=== PATIENT | female | born 1970 | race Hispanic/Latino ===

== ENCOUNTER 2017-10-28 09:44 | Day surgery (SDC) | payer BC ==
[2017-10-25 13:25] LABS: Urine Appearance CLEAR; Urine Bilirubin NEGATIVE (NEG); Urine Blood NEGATIVE (NEG); Urine Color YELLOW; Urine Glucose NEGATIVE (NEG); Urine Protein NEGATIVE (NEG); Urine Specific Gravity 1.015 (1.005-1.030); Urine Urobilinogen 0.2 mg/dL (0.2-1.0)
[2017-10-25 13:27] LABS: Urine Microscopic Reflex NO UMIC
[2017-10-25 13:29] LABS: Absolute Lymphocytes (CBC) 2.2 K/uL (0.7-4.9); Absolute Monocytes 0.6 K/uL (0.1-1.3); Absolute Neutrophil 6.4 K/uL (1.8-8.0); Basophils % 0.3 % (0-1.3); Eosinophils % 0.5 % (0-4.4); Hematocrit 37.9 % (36.0-45.0); Lymphocytes % 23.8 % (15.3-44.8); MCH 28.7 pg (27.0-35.0); MCV 87.1 fL (80-100); Monocytes % 6.4 % (3.3-12.3); RBC Red Blood Cell Count 4.36 M/uL (3.86-4.86)
[2017-10-25 13:35] LABS: Protime INR 0.92
[2017-10-25 14:00] LABS: BUN Blood Urea Nitrogen 14 mg/dL (6-20); Bicarbonate 26 mEq/L (21-31); Glucose Level 95 mg/dL (65-120); Potassium 4.2 mEq/L (3.6-5.0); Sodium Level 138 mEq/L (135-145)
--- OUTSIDE RECORDS SUMMARY | 2017-10-28 09:47 | XMS REPORT ---
:1970 [facility] [address] [place] [address] Dr. Anders [address] [place] [id number] Care Team Providers Name Role Phone ANDRES AYALA Unavailable Unavailable TAYLOR CARTER CHAUNCEY Unavailable Unavailable Problems This patient has no known problems. Allergies, Adverse Reactions, Alerts This patient has no known allergies or adverse reactions. Medications This patient has no known medications. Results Test Description Test Time Test Comments Text Results Atomic Results Result Comments RAD, CHEST, 2 2017-07-31 Reason for exam:->Chest FINAL REPORT PATIENT VIEWS 11:24:00 painIs the PA and ?->NoShould this be Lateral views of the performed at the chest dated 07/31/2017 bedside?->No Clinical information: Chest pain Comment: Heart is normal in size. Pulmonary vasculature is unremarkable. Lungs are clear. No pulmonary infiltrate or pleural effusion is present. Impression: No active cardiopulmonary disease. Signed: Saman Maldonado Verified Date/Time: 07/31/2017 11:24:20 Reading Location: [address] Ortho Consult Reading Room /APTT 2017-07-31 11:14:00 Test Item Value Reference Range Comments PROTIME (BEAKER) (test ayso=056) 13.6 seconds 11.7-14.7 INR (BEAKER) (test uiwe=968) 1.0 <=5.9 PARTIAL THROMBOPLASTIN TIME (BEAKER) (test jamw=189) 28.1 seconds 22.5-36.0 RECOMMENDED COUMADIN/WARFARIN INR THERAPY RANGESSTANDARD DOSE: 2.0 - 3.0 Includes: PROPHYLAXIS forvenous thrombosis, systemic embolization; TREATMENT for venous thrombosis and/or pulmonary embolus.HIGH RISK: Target INR is 2.5-3.5 for patients with mechanical heart valves.CREATINE KINASE (CK), TOTAL AND [id number] 11:14:00 Test Item Value Reference Range Comments CREATINE KINASE TOTAL (BEAKER) (test thkm=848) 87 U/L 29-200 CREATINE KINASE-MB (BEAKER) (test goug=138) 0.5 ng/mL 0.0-6.6 CREATINE KINASE-MB INDEX (BEAKER) (test khfm=797) 0.6 % CK-MB Reference Range:<6.7 Normal6.7-10.0 Borderline>10.0 AbnormalTROPONIN [id number] 11:14:00 Test Item Value Reference Range Comments TROPONIN I (BEAKER) (test izsu=261) < ng/mL 0.00-0.03 Troponin I (TnI) levels must be interpreted in the context of the presenting symptoms and the clinical findings. Elevated TnI levels indicate myocardial damage, but are not specific for ischemic heart disease. Elevated TnI levels are seen in patients with other cardiac conditions (including myocarditis and congestive heart failure), and slight TnI elevations occur in patients with other conditions, including sepsis, renal failure, acidosis, acute neurological disease, and persistent tachyarrhythmia.[id number] 11:12:00 Test Item Value Reference Range Comments MAGNESIUM (BEAKER) (test watc=173) 2.1 mg/dL 1.6-2.6 BASIC METABOLIC [id number] 11:12:00 Test Item Value Reference Range Comments SODIUM (BEAKER) (test 140 meq/L 136-145 cpza=784) POTASSIUM (BEAKER) (test 3.7 meq/L 3.5-5.1 jcql=612) CHLORIDE (BEAKER) (test 105 meq/L 98-107 woze=506) CO2 (BEAKER) (test 25 meq/L 22-29 whoc=651) BLOOD UREA NITROGEN 12 mg/dL 7-21 (BEAKER) (test ffif=696) CREATININE (BEAKER) (test 0.66 mg/dL 0.57-1.25 qudj=699) GLUCOSE RANDOM (BEAKER) 101 mg/dL 70-105 (test ewro=998) CALCIUM (BEAKER) (test 9.4 mg/dL 8.4-10.2 mpsq=386) EGFR (BEAKER) (test 96 mL/min/1.73 sq m ESTIMATED GFR IS NOT teds=0359) ACCURATE CREATININE CLEARANCE IN PREDICTING GLOMERULAR FILTRATION RATE. ESTIMATED GFR IS NOT APPLICABLE FOR DIALYSIS PATIENTS. HEPATIC FUNCTION [id number] 11:12:00 Test Item Value Reference Range Comments TOTAL PROTEIN (BEAKER) (test anoa=666) 7.8 gm/dL 6.0-8.3 ALBUMIN (BEAKER) (test ktym=1606) 4.4 g/dL 3.5-5.0 BILIRUBIN TOTAL (BEAKER) (test qguc=294) 0.6 mg/dL 0.2-1.2 BILIRUBIN DIRECT (BEAKER) (test kwfj=731) 0.3 mg/dL 0.1-0.5 ALKALINE PHOSPHATASE (BEAKER) (test azgf=848) 112 U/L 40-150 AST (SGOT) (BEAKER) (test tmnb=975) 22 U/L 5-34 ALT (SGPT) (BEAKER) (test vnji=074) 24 U/L 6-55 CBC W/PLT COUNT & AUTO [id number] 10:51:00 Test Item Value Reference Range Comments WHITE BLOOD CELL COUNT (BEAKER) (test sslh=046) 8.8 K/ L 3.5-10.5 RED BLOOD CELL COUNT (BEAKER) (test bbia=447) 4.11 M/ L 3.93-5.22 HEMOGLOBIN (BEAKER) (test hccx=879) 12.2 GM/DL 11.2-15.7 HEMATOCRIT (BEAKER) (test njsc=465) 36.8 % 34.1-44.9 MEAN CORPUSCULAR VOLUME (BEAKER) (test zaan=658) 89.5 fL 79.4-94.8 MEAN CORPUSCULAR HEMOGLOBIN (BEAKER) (test 29.7 pg 25.6-32.2 qdrl=408) MEAN CORPUSCULAR HEMOGLOBIN CONC (BEAKER) (test 33.2 GM/DL 32.2-35.5 qape=620) RED CELL DISTRIBUTION WIDTH (BEAKER) (test 13.1 % 11.7-14.4 toaj=735) PLATELET COUNT (BEAKER) (test whdo=177) 247 K/CU MM 150-450 MEAN PLATELET VOLUME (BEAKER) (test gfay=912) 11.8 fL 9.4-12.3 NUCLEATED RED BLOOD CELLS (BEAKER) (test 0 /100 WBC 0-0 sdri=742) NEUTROPHILS RELATIVE PERCENT (BEAKER) (test 74 % qcxq=699) LYMPHOCYTES RELATIVE PERCENT (BEAKER) (test 20 % kjda=560) MONOCYTES RELATIVE PERCENT (BEAKER) (test 5 % zjvl=379) EOSINOPHILS RELATIVE PERCENT (BEAKER) (test 0 % xhfz=721) BASOPHILS RELATIVE PERCENT (BEAKER) (test 1 % kevw=331) NEUTROPHILS ABSOLUTE COUNT (BEAKER) (test 6.49 K/ L 1.56-6.13 haam=210) LYMPHOCYTES ABSOLUTE COUNT (BEAKER) (test 1.77 K/ L 1.18-3.74 debo=212) MONOCYTES ABSOLUTE COUNT (BEAKER) (test 0.43 K/ L 0.24-0.36 zqqv=232) EOSINOPHILS ABSOLUTE COUNT (BEAKER) (test 0.01 K/ L 0.04-0.36 oryd=002) BASOPHILS ABSOLUTE COUNT (BEAKER) (test 0.04 K/ L 0.01-0.08 wbnm=167) IMMATURE GRANULOCYTES-RELATIVE PERCENT (BEAKER) 0 % 0-1 (test mkaw=5628) BASIC METABOLIC [id number] 04:33:00 Test Item Value Reference Range Comments SODIUM (BEAKER) (test 140 meq/L 136-145 rltq=438) POTASSIUM (BEAKER) (test 3.7 meq/L 3.5-5.1 Specimen slightly lxhw=533) hemolyzed CHLORIDE (BEAKER) (test 105 meq/L 98-107 zwoz=730) CO2 (BEAKER) (test 23 meq/L 22-29 sopi=969) BLOOD UREA NITROGEN 16 mg/dL 7-21 (BEAKER) (test htoi=546) CREATININE (BEAKER) (test 0.75 mg/dL 0.57-1.25 Specimen slightly kfqe=365) hemolyzed GLUCOSE RANDOM (BEAKER) 96 mg/dL 70-105 (test rodm=290) CALCIUM (BEAKER) (test 9.2 mg/dL 8.4-10.2 bjka=600) EGFR (BEAKER) (test 83 mL/min/1.73 sq m ESTIMATED GFR IS NOT qjal=4920) ACCURATE CREATININE CLEARANCE IN PREDICTING GLOMERULAR FILTRATION RATE. ESTIMATED GFR IS NOT APPLICABLE FOR DIALYSIS PATIENTS. CBC W/PLT COUNT & AUTO [id number] 04:11:00 Test Item Value Reference Range Comments WHITE BLOOD CELL COUNT (BEAKER) (test hsyq=341) 8.6 K/ L 3.5-10.5 RED BLOOD CELL COUNT (BEAKER) (test zuuy=897) 4.39 M/ L 3.93-5.22 HEMOGLOBIN (BEAKER) (test wsse=305) 12.8 GM/DL 11.2-15.7 HEMATOCRIT (BEAKER) (test mjkr=978) 39.6 % 34.1-44.9 MEAN CORPUSCULAR VOLUME (BEAKER) (test zryi=269) 90.2 fL 79.4-94.8 MEAN CORPUSCULAR HEMOGLOBIN (BEAKER) (test 29.2 pg 25.6-32.2 dpcy=568) MEAN CORPUSCULAR HEMOGLOBIN CONC (BEAKER) (test 32.3 GM/DL 32.2-35.5 vuyb=462) RED CELL DISTRIBUTION WIDTH (BEAKER) (test 13.7 % 11.7-14.4 txkw=203) PLATELET COUNT (BEAKER) (test ritw=853) 253 K/CU MM 150-450 MEAN PLATELET VOLUME (BEAKER) (test iggp=664) 12.4 fL 9.4-12.3 NUCLEATED RED BLOOD CELLS (BEAKER) (test 0 /100 WBC 0-0 vxgv=016) NEUTROPHILS RELATIVE PERCENT (BEAKER) (test 50 % fsho=409) LYMPHOCYTES RELATIVE PERCENT (BEAKER) (test 40 % mnlm=283) MONOCYTES RELATIVE PERCENT (BEAKER) (test 8 % cowg=070) EOSINOPHILS RELATIVE PERCENT (BEAKER) (test 2 % lixq=513) BASOPHILS RELATIVE PERCENT (BEAKER) (test 1 % fmyx=063) NEUTROPHILS ABSOLUTE COUNT (BEAKER) (test 4.28 K/ L 1.56-6.13 spsx=230) LYMPHOCYTES ABSOLUTE COUNT (BEAKER) (test 3.47 K/ L 1.18-3.74 iyow=143) MONOCYTES ABSOLUTE COUNT (BEAKER) (test 0.68 K/ L 0.24-0.36 xepx=756) EOSINOPHILS ABSOLUTE COUNT (BEAKER) (test 0.14 K/ L 0.04-0.36 vdaa=438) BASOPHILS ABSOLUTE COUNT (BEAKER) (test 0.05 K/ L 0.01-0.08 qhmh=030) IMMATURE GRANULOCYTES-RELATIVE PERCENT (BEAKER) 0 % 0-1 (test npog=8181) MR, MRA, NECK, WITHOUT IV [id number] 17:43:00FINAL REPORT MRA Head CLINICAL HISTORY: Stroke TECHNIQUE: MRA of the head utilizing 3-D ztix-jo-vigvar technique, with 3-D reconstructions. COMPARISON: None FINDINGS: There is noevidence of intracranial aneurysm, focal stenosis, or major branch vessel occlusion. There is a origin right posterior cerebral artery. IMPRESSION: No evidence for a major [place] proximal branch vessel occlusion. MRA Neck CLINICAL HISTORY: Stroke TECHNIQUE: MRA of the neck utilizing 2-D and 3-D kwww-vd-zffoix technique, with 3-D reconstructions. COMPARISON: None FINDINGS: The carotid arteries in the neck are patent including their bifurcations. There is antegrade flow in the vertebral arteries in the neck. IMPRESSION: No evidence of hemodynamically significant stenosis in thecervical carotid or vertebral arteries by NASCET criteria. Signed: German Guzman MDReport Verified Date/Time: 07/24/2017 17:43: 53 Reading Location: [address] Neuro Reading Room MR, MRA, BRAIN, WITHOUT [id number] 17:43:00Reason for exam:->StrokeIs the patient ?-& gt;NoWhat is the patient's sedation requirement?->No SedationIs the patient claustrophobic?->NoFINAL REPORT MRA Head CLINICAL HISTORY: Stroke TECHNIQUE: MRA of the head utilizing 3-D qgqu-iy-xzypbh technique, with 3-D reconstructions. COMPARISON: None FINDINGS: There is noevidence of intracranial aneurysm, focal stenosis, or major branch vessel occlusion. There is a origin right posterior cerebral artery. IMPRESSION : No evidence for a major [place] proximal branch vessel occlusion. MRA Neck CLINICAL HISTORY: Stroke TECHNIQUE: MRA of the neck utilizing 2-D and 3 -D cygo-uj-qzmwwe technique, with 3-D reconstructions. COMPARISON: None FINDINGS : The carotid arteries in the neck are patent including their bifurcations. There is antegrade flow in the vertebral arteries in the neck. IMPRESSION: No evidence of hemodynamically significant stenosis in thecervical carotid or vertebral arteries by NASCET criteria. Signed: German Guzman Verified Date/Time: 07/24/2017 17:43:53 Reading Location: [address] Neuro Reading Room MR, BRAIN, WITHOUT [id number] 17:37:00Reason for exam:->StrokeIs the patient ?->NoWhat is the patient's sedation requirement?->No SedationIs the patient claustrophobic?->NoFINAL REPORT MRI Brain without contrast Clinical History: Stroke Technique: MRI of the brain utilizing axial T2, FLAIR, GRE, DWI; sagittal and coronal T1-weighted images. Comparisons: None Findings: There is no evidence of acute infarct or hemorrhage. There is no significant appearing white matter disease. There is mild generalized sulcal prominence without hydrocephalus, midline shift, or apparent mass effect. There are no extra-axial fluid collections. The craniocervical junction is preserved. The major intracranial flow-voids appear patent. IMPRESSION: No evidence of acute infarct, hemorrhage, or hydrocephalus. Signed: German Guzman Verified Date/Time: 07/24/2017 17 :37:18 Reading Location: [address] Neuro Reading Room HEMOGLOBIN [id number] 11 :57:00 Test Item Value Reference Range Comments HEMOGLOBIN A1C (BEAKER) (test kcfn=977) 5.3 % 4.3-6.1 VITAMIN B12 AND [id number] 05:35:00 Test Item Value Reference Range Comments VITAMIN B12 (BEAKER) (test rzqd=090) > pg/mL 213-816 FOLATE (BEAKER) (test bynn=082) 15.0 ng/mL >=7.0 LIPID [id number] 04:56:00 Test Item Value Reference Range Comments TRIGLYCERIDES (BEAKER) (test rxzx=030) 58 mg/dL CHOLESTEROL (BEAKER) (test ated=121) 170 mg/dL HDL CHOLESTEROL (BEAKER) (test scze=954) 51 mg/dL LDL CHOLESTEROL CALCULATED (BEAKER) (test 107 mg/dL asxy=036) Triglyceride Reference Range: Low Risk <150 Borderline 150- 199 High Risk 200-499 Very High Risk >=500Cholesterol Reference Range: Low Risk <200 Borderline 200-239 High Risk > 240HDL Cholesterol Reference Range: Low Risk >=60 High Risk <40LDL Cholesterol Reference Range: Optimal <100 Near Optimal 100-129 Borderline 130-159 High 160-189 Very High >=190 FastingBASIC METABOLIC [id number] 04:56:00 Test Item Value Reference Range Comments SODIUM (BEAKER) (test 138 meq/L 136-145 jcxq=729) POTASSIUM (BEAKER) (test 3.9 meq/L 3.5-5.1 rdsm=505) CHLORIDE (BEAKER) (test 108 meq/L 98-107 svbn=837) CO2 (BEAKER) (test 21 meq/L 22-29 dnbn=807) BLOOD UREA NITROGEN 14 mg/dL 7-21 (BEAKER) (test iays=348) CREATININE (BEAKER) (test 0.65 mg/dL 0.57-1.25 viqr=794) GLUCOSE RANDOM (BEAKER) 100 mg/dL 70-105 (test pmgy=276) CALCIUM (BEAKER) (test 9.1 mg/dL 8.4-10.2 fogi=061) EGFR (BEAKER) (test 98 mL/min/1.73 sq m ESTIMATED GFR IS NOT zcri=3918) ACCURATE CREATININE CLEARANCE IN PREDICTING GLOMERULAR FILTRATION RATE. ESTIMATED GFR IS NOT APPLICABLE FOR DIALYSIS PATIENTS. FastingTROPONIN [id number] 04:54:00 Test Item Value Reference Range Comments TROPONIN I (BEAKER) (test awaf=447) 0.01 ng/mL 0.00-0.03 Troponin I (TnI) levels must be interpreted in the context of the presenting symptoms and the clinical findings. Elevated TnI levels indicate myocardial damage, but are not specific for ischemic heart disease. Elevated TnI levels are seen in patients with other cardiac conditions (including myocarditis and congestive heart failure), and slight TnI elevations occur in patients with other conditions, including sepsis, renal failure, acidosis, acute neurological disease, and persistent tachyarrhythmia.FastingCBC W/PLT COUNT & AUTO [id number] 04:37:00 Test Item Value Reference Range Comments WHITE BLOOD CELL COUNT (BEAKER) (test wsxg=073) 8.3 K/ L 3.5-10.5 RED BLOOD CELL COUNT (BEAKER) (test dtpk=134) 4.01 M/ L 3.93-5.22 HEMOGLOBIN (BEAKER) (test opej=097) 12.0 GM/DL 11.2-15.7 HEMATOCRIT (BEAKER) (test snmt=033) 36.0 % 34.1-44.9 MEAN CORPUSCULAR VOLUME (BEAKER) (test qoyy=417) 89.8 fL 79.4-94.8 MEAN CORPUSCULAR HEMOGLOBIN (BEAKER) (test 29.9 pg 25.6-32.2 uzup=513) MEAN CORPUSCULAR HEMOGLOBIN CONC (BEAKER) (test 33.3 GM/DL 32.2-35.5 ejhb=888) RED CELL DISTRIBUTION WIDTH (BEAKER) (test 13.6 % 11.7-14.4 xupi=136) PLATELET COUNT (BEAKER) (test kiwz=639) 239 K/CU MM 150-450 MEAN PLATELET VOLUME (BEAKER) (test zcle=650) 11.8 fL 9.4-12.3 NUCLEATED RED BLOOD CELLS (BEAKER) (test 0 /100 WBC 0-0 ivwa=507) NEUTROPHILS RELATIVE PERCENT (BEAKER) (test 60 % djxd=155) LYMPHOCYTES RELATIVE PERCENT (BEAKER) (test 31 % gxkv=142) MONOCYTES RELATIVE PERCENT (BEAKER) (test 9 % crvb=889) EOSINOPHILS RELATIVE PERCENT (BEAKER) (test 1 % gndm=186) BASOPHILS RELATIVE PERCENT (BEAKER) (test 0 % aheo=009) NEUTROPHILS ABSOLUTE COUNT (BEAKER) (test 4.92 K/ L 1.56-6.13 htoh=718) LYMPHOCYTES ABSOLUTE COUNT (BEAKER) (test 2.53 K/ L 1.18-3.74 lfhs=455) MONOCYTES ABSOLUTE COUNT (BEAKER) (test 0.70 K/ L 0.24-0.36 wnhj=214) EOSINOPHILS ABSOLUTE COUNT (BEAKER) (test 0.07 K/ L 0.04-0.36 wweu=893) BASOPHILS ABSOLUTE COUNT (BEAKER) (test 0.03 K/ L 0.01-0.08 wrup=660) IMMATURE GRANULOCYTES-RELATIVE PERCENT (BEAKER) 0 % 0-1 (test ibek=6053) TROPONIN [id number] 01:17:00 Test Item Value Reference Range Comments TROPONIN I (BEAKER) (test phpa=975) < ng/mL 0.00-0.03 Troponin I (TnI) levels must be interpreted in the context of the presenting symptoms and the clinical findings. Elevated TnI levels indicate myocardial damage, but are not specific for ischemic heart disease. Elevated TnI levels are seen in patients with other cardiac conditions (including myocarditis and congestive heart failure), and slight TnI elevations occur in patients with other conditions, including sepsis, renal failure, acidosis, acute neurological disease, and persistent tachyarrhythmia.TSH/FREE T4 IF [id number] 19:24 :00 Test Item Value Reference Range Comments THYROID STIMULATING HORMONE (BEAKER) (test 1.15 uIU/mL 0.35-4.94 rdhw=705) HEPATIC FUNCTION [id number] 19:04:00 Test Item Value Reference Range Comments TOTAL PROTEIN (BEAKER) (test fwmi=284) 7.5 gm/dL 6.0-8.3 ALBUMIN (BEAKER) (test lado=3339) 4.1 g/dL 3.5-5.0 BILIRUBIN TOTAL (BEAKER) (test yckr=988) 0.5 mg/dL 0.2-1.2 BILIRUBIN DIRECT (BEAKER) (test puvb=794) 0.2 mg/dL 0.1-0.5 ALKALINE PHOSPHATASE (BEAKER) (test bukf=843) 98 U/L 40-150 AST (SGOT) (BEAKER) (test subt=527) 26 U/L 5-34 ALT (SGPT) (BEAKER) (test tjbl=404) 17 U/L 6-55 BASIC METABOLIC [id number] 19:04:00 Test Item Value Reference Range Comments SODIUM (BEAKER) (test 140 meq/L 136-145 ztae=420) POTASSIUM (BEAKER) (test 3.6 meq/L 3.5-5.1 tsvu=787) CHLORIDE (BEAKER) (test 108 meq/L 98-107 tqof=346) CO2 (BEAKER) (test 24 meq/L 22-29 enbz=008) BLOOD UREA NITROGEN 11 mg/dL 7-21 (BEAKER) (test hwzw=738) CREATININE (BEAKER) (test 0.59 mg/dL 0.57-1.25 bfgd=601) GLUCOSE RANDOM (BEAKER) 96 mg/dL 70-105 (test judg=337) CALCIUM (BEAKER) (test 10.4 mg/dL 8.4-10.2 gvvq=161) EGFR (BEAKER) (test 110 mL/min/1.73 sq m ESTIMATED GFR IS NOT ameg=3588) ACCURATE CREATININE CLEARANCE IN PREDICTING GLOMERULAR FILTRATION RATE. ESTIMATED GFR IS NOT APPLICABLE FOR DIALYSIS PATIENTS. PROTHROMBIN [id number] 18:22:00 Test Item Value Reference Range Comments PROTIME (BEAKER) (test sfpw=417) 13.5 seconds 11.7-14.7 INR (BEAKER) (test bfin=850) 1.0 <=5.9 RECOMMENDED COUMADIN/WARFARIN INR THERAPY RANGESSTANDARD DOSE: 2.0 - 3.0 Includes: PROPHYLAXIS forvenous thrombosis, systemic embolization; TREATMENT for venous thrombosis and/or pulmonary embolus.HIGH RISK: Target INR is 2.5-3.5 for patients with mechanical heart valves.URINALYSIS W/ [id number] 18 :11:00 Test Item Value Reference Range Comments COLOR (BEAKER) (test rtxs=347) Light Yellow CLARITY (BEAKER) (test cmku=640) Clear SPECIFIC GRAVITY UA (BEAKER) (test bjia=074) 1.006 1.001-1.035 PH UA (BEAKER) (test qbyz=918) 7.0 5.0-8.0 PROTEIN UA (BEAKER) (test udor=853) Negative Negative GLUCOSE UA (BEAKER) (test wsgx=264) Negative Negative KETONES UA (BEAKER) (test vnqe=772) 40 mg/dL Negative BILIRUBIN UA (BEAKER) (test kzcc=366) Negative Negative BLOOD UA (BEAKER) (test tpry=299) Negative Negative NITRITE UA (BEAKER) (test eztl=137) Negative Negative LEUKOCYTE ESTERASE UA (BEAKER) (test ehle=361) Negative Negative UROBILINOGEN UA (BEAKER) (test gfvm=363) 0.2 mg/dL 0.2-1.0 RBC UA (BEAKER) (test pzgo=919) 0 /HPF WBC UA (BEAKER) (test ymcb=495) 0 /HPF MUCUS (BEAKER) (test xkwf=3792) Rare SQUAMOUS EPITHELIAL (BEAKER) (test tarp=829) 6 /HPF SOURCE(BEAKER) (test jvtm=3988) Urine, Voided CBC W/PLT COUNT & AUTO [id number] 17:49:00 Test Item Value Reference Range Comments WHITE BLOOD CELL COUNT (BEAKER) (test mipg=358) 9.5 K/ L 3.5-10.5 RED BLOOD CELL COUNT (BEAKER) (test jxnh=197) 4.29 M/ L 3.93-5.22 HEMOGLOBIN (BEAKER) (test mgqa=597) 13.1 GM/DL 11.2-15.7 HEMATOCRIT (BEAKER) (test zuas=069) 38.3 % 34.1-44.9 MEAN CORPUSCULAR VOLUME (BEAKER) (test yqvb=993) 89.3 fL 79.4-94.8 MEAN CORPUSCULAR HEMOGLOBIN (BEAKER) (test 30.5 pg 25.6-32.2 iiiq=684) MEAN CORPUSCULAR HEMOGLOBIN CONC (BEAKER) (test 34.2 GM/DL 32.2-35.5 woey=633) RED CELL DISTRIBUTION WIDTH (BEAKER) (test 13.6 % 11.7-14.4 rnxk=717) PLATELET COUNT (BEAKER) (test oxeu=060) 125 K/CU MM 150-450 MEAN PLATELET VOLUME (BEAKER) (test cieu=574) 11.9 fL 9.4-12.3 NUCLEATED RED BLOOD CELLS (BEAKER) (test 0 /100 WBC 0-0 fnnx=525) NEUTROPHILS RELATIVE PERCENT (BEAKER) (test 76 % ecqn=632) LYMPHOCYTES RELATIVE PERCENT (BEAKER) (test 18 % myrp=424) MONOCYTES RELATIVE PERCENT (BEAKER) (test 5 % ysvo=291) EOSINOPHILS RELATIVE PERCENT (BEAKER) (test 0 % zfjl=952) BASOPHILS RELATIVE PERCENT (BEAKER) (test 1 % cwmw=772) NEUTROPHILS ABSOLUTE COUNT (BEAKER) (test 7.21 K/ L 1.56-6.13 zumc=105) LYMPHOCYTES ABSOLUTE COUNT (BEAKER) (test 1.69 K/ L 1.18-3.74 nybu=512) MONOCYTES ABSOLUTE COUNT (BEAKER) (test 0.45 K/ L 0.24-0.36 wqyb=402) EOSINOPHILS ABSOLUTE COUNT (BEAKER) (test 0.01 K/ L 0.04-0.36 zpsq=252) BASOPHILS ABSOLUTE COUNT (BEAKER) (test 0.05 K/ L 0.01-0.08 jlra=638) IMMATURE GRANULOCYTES-RELATIVE PERCENT (BEAKER) 0 % 0-1 (test brwm=3528)
--- OUTSIDE RECORDS SUMMARY | 2017-10-28 09:47 | XMS REPORT | Clinical Summary ---
:1970 Author Organization [facility] Address [address] [place] [address] Phone Care Team Providers Name Role Phone Unavailable Primary Care Provider Unavailable Allergies Active Allergy Reactions Severity Noted Date Comments Cefdinir Hives 07/31/2017 Ciprofloxacin Hives 07/31/2017 Sulfamethoxazole-Trimethoprim 07/31/2017 Current Medications Prescription Sig. Disp. Refills Start Date End Date Status aspirin 81 MG Take 1 tablet 90 tablet 2 07/26/2017 07/26/2018 Active chewable tablet (81 mg total) by mouth daily. atorvastatin Take 1 tablet 60 tablet 2 07/25/2017 07/25/2018 Active (LIPITOR) 40 MG (40 mg total) tablet by mouth nightly. gabapentin Take 1 capsule 90 capsule 2 07/25/2017 07/25/2018 Active (NEURONTIN) 100 MG (100 mg total) capsule by mouth 3 (three) times daily. acetaminophen Take 1 tablet 30 tablet 0 07/31/2017 08/10/2017 (TYLENOL) 500 MG (500 mg total) tablet by mouth every 6 (six) hours as needed for Pain for up to 10 days. Active Problems Problem Noted Date Ischemic stroke (HCC) 07/23/2017 S/P admn tPA in diff fac w/n last 24 hr bef adm to crnt fac 07/23/2017 Encounters Date Type Specialty Care Team Description 07/31/2017 Emergency Emergency Medicine Andres Ayala Chest pain, MD Oj unspecified type (Primary Dx);Palpitations 07/31/2017 Orders Only General Internal Medicine 07/23/2017 - Hospital Encounter Intensive Care Roman Ardon Ischemic stroke 07/25/2017 [place] ([facility]);S/P admn tPA in diff fac w/n last 24 hr bef adm to crnt fac after 10/27/2016 Social History Tobacco Use Types Packs/Day Years Used Date Never Smoker Smokeless Tobacco: Never Used Alcohol Use Drinks/Week oz/Week Comments Yes 1 drink a month Sex Assigned at Date Recorded Not on file Last Filed Vital Signs Vital Sign Reading Time Taken Blood Pressure 123/69 07/31/2017 12:11 PM CDT Pulse 72 07/31/2017 12:11 PM CDT Temperature 36.6 C (97.9 F) 07/31/2017 8:20 AM CDT Respiratory Rate 16 07/31/2017 12:11 PM CDT Oxygen Saturation 100% 07/31/2017 12:11 PM CDT Inhaled Oxygen Concentration - - Weight 62.1 kg (137 lb) 07/31/2017 8:16 AM CDT Height 157.5 cm (5' 2") 07/31/2017 8:16 AM CDT Body Mass Index 25.06 07/31/2017 8:16 AM CDT Plan of Treatment Not on file Results ED ECG Interpretation (07/31/2017 12:17 PM) Narrative Andres Ayala MD 07/31/2017 12:17 PM ECG/EKG Interpretation Date/Time: 07/31/2017 10:15 AM Performed by: ANDRES AYALA Authorized by: ANDRES AYALA The ECG was interpreted by ED physician. The ECG is interpreted as sinus rhythm. Rate is normal rate. Heart rate is 81 BPM. Conduction: conduction normal. ST segments normal. ECG reviewed and does not meet STEMI criteria. Patient tolerance: Patient tolerated the procedure well with no immediate complications XR chest 2 views (07/31/2017 11:21 AM) Specimen Performing Laboratory [facility]IS Narrative FINAL REPORT PA and Lateral views of the chest dated 07/31/2017 Clinical information: Chest pain Comment:Heart is normal in size. Pulmonary vasculature is unremarkable. Lungs are clear. No pulmonary infiltrate or pleural effusion is present. Impression:No active cardiopulmonary disease. Signed: Saman Maldonado MD Report Verified Date/Time:07/31/2017 11:24:20 Reading Location: [facility] C013X Ortho Consult Reading Room Procedure Note Interface, External Ris In - 07/31/2017 11:26 AM CDT FINAL REPORT PA and Lateral views of the chest dated 07/31/2017 Clinical information: Chest pain Comment: Heart is normal in size. Pulmonary vasculature is unremarkable. Lungs are clear. No pulmonary infiltrate or pleural effusion is present. Impression: No active cardiopulmonary disease. Signed: Saman Maldonado MD Report Verified Date/Time: 07/31/2017 11:24:20 Reading Location: [facility] C013X Ortho Consult Reading Room /aPTT (07/31/2017 10:21 AM) Component Value Ref Range Protime 13.6 11.7 - 14.7 seconds INR 1.0 <=5.9 PTT 28.1 22.5 - 36.0 seconds Specimen Performing [place] [address] Narrative RECOMMENDED COUMADIN/WARFARIN INR THERAPY RANGES STANDARD DOSE: 2.0 - 3.0 Includes: PROPHYLAXIS for venous thrombosis, systemic embolization; TREATMENT for venous thrombosis and/or pulmonary embolus. HIGH RISK: Target INR is 2.5-3.5 for patients with mechanical heart valves. CBC with platelet count + automated diff (07/31/2017 10:21 AM)Only the most recent of4 resultswithin the time period is included. Component Value Ref Range WBC 8.8 3.5 - 10.5 K/L RBC 4.11 3.93 - 5.22 M/L Hemoglobin 12.2 11.2 - 15.7 GM/DL Hematocrit 36.8 34.1 - 44.9 % MCV 89.5 79.4 - 94.8 fL MCH 29.7 25.6 - 32.2 pg MCHC 33.2 32.2 - 35.5 GM/DL RDW 13.1 11.7 - 14.4 % Platelets 247 150 - 450 K/CU MM MPV 11.8 9.4 - 12.3 fL nRBC 0 0 - 0 /100 WBC % Neutros 74 % % Lymphs 20 % % Monos 5 % % Eos 0 % % Baso 1 % # Neutros 6.49 (H) 1.56 - 6.13 K/L # Lymphs 1.77 1.18 - 3.74 K/L # Monos 0.43 (H) 0.24 - 0.36 K/L # Eos 0.01 (L) 0.04 - 0.36 K/L # Baso 0.04 0.01 - 0.08 K/L Immature Granulocytes-Relative 0 0 - 1 % Specimen Performing Laboratory Blood [address] [address] Troponin I (07/31/2017 10:21 AM)Only the most recent of3 resultswithin the time period is included. Component Value Ref Range Troponin I <0.01 0.00 - 0.03 ng/mL Specimen Performing Laboratory [address] [address] Narrative Troponin I (TnI) levels must be interpreted [...] failure, acidosis, acute neurological disease, and persistent tachyarrhythmia. CBC with platelet count + automated diff (07/31/2017 10:21 AM)Only the most recent of4 resultswithin the time period is included. Specimen Performing Laboratory Blood Narrative The following orders were created for panel order CBC with platelet count + automated diff. Procedure Abnormality Status --------- ------ CBC with platelet count ...[[id number]]AbnormalFinal result Please view results for these tests on the individual orders. Magnesium (07/31/2017 10:21 AM) Component Value Ref Range Magnesium 2.1 1.6 - 2.6 mg/dL Specimen Performing Laboratory Blood [address] [address] Creatine Kinase (CK), Total and MB (07/31/2017 10:21 AM) Component Value Ref Range Total CK 87 29 - 200 U/L CK-MB 0.5 0.0 - 6.6 ng/mL MB Relative Index 0.6 % Specimen Performing Laboratory Blood [address] [place] [address] Narrative CK-MB Reference Range: <6.7Normal 6.7-10.0Borderline >10.0 Abnormal Hepatic function panel (07/31/2017 10:21 AM)Only the most recent of2 resultswithin the time period is included. Component Value Ref Range Protein, Total 7.8 6.0 - 8.3 gm/dL Albumin 4.4 3.5 - 5.0 g/dL Total Bilirubin 0.6 0.2 - 1.2 mg/dL Bilirubin, Direct 0.3 0.1 - 0.5 mg/dL Alkaline Phosphatase 112 40 - 150 U/L AST 22 5 - 34 U/L ALT 24 6 - 55 U/L Specimen Performing Laboratory Blood [address] [address] Basic Metabolic Panel (07/31/2017 10:21 AM)Only the most recent of4 resultswithin the time period is included. Component Value Ref Range Sodium 140 136 - 145 meq/L Potassium 3.7 3.5 - 5.1 meq/L Chloride 105 98 - 107 meq/L CO2 25 22 - 29 meq/L BUN 12 7 - 21 mg/dL Creatinine 0.66 0.57 - 1.25 mg/dL Glucose 101 70 - 105 mg/dL Calcium 9.4 8.4 - 10.2 mg/dL EGFR 96Comment: ESTIMATED GFR IS NOT ACCURATE mL/min/1.73 sq m CREATININE CLEARANCE IN PREDICTING GLOMERULAR FILTRATION RATE. ESTIMATED GFR IS NOT APPLICABLE FOR DIALYSIS PATIENTS. Specimen Performing Laboratory Blood [address] [address] ECG 12 lead (07/31/2017 8:14 AM) Specimen Performing Laboratory [employer] [facility] Narrative Ventricular Rate 81 BPM Atrial Rate 81 BPM P-R Interval 152 ms QRS Duration 76 ms Q-T Interval 378 ms QTC Calculation(Bazett) 439 ms P [place] 61 degrees R [place] 6 degrees T [place] 12 degrees Normal sinus rhythm Low voltage QRS Poor R wave progression Borderline ECG No previous ECGs available Confirmed by Philipp Rogers ([id number]) on 08/01/2017 7:55:10 AM Procedure Note Interface, External Ris In - 08/01/2017 7:55 AM CDT Ventricular Rate 81 BPM Atrial Rate 81 BPM P-R Interval 152 ms QRS Duration 76 ms Q-T Interval 378 ms QTC Calculation(Bazett) 439 ms P [place] 61 degrees R [place] 6 degrees T [place] 12 degrees Normal sinus rhythm Low voltage QRS Poor R wave progression Borderline ECG No previous ECGs available Confirmed by Philipp Rogers ([id number]) on 08/01/2017 7:55:10 AM RHYTHM STRIP - SCAN (07/27/2017 12:30 PM)MR brain without IV contrast (2017 12:33 PM) Specimen Performing Laboratory RIS Narrative FINAL REPORT MRI Brain without contrast Clinical History: [...] infarct, hemorrhage, or hydrocephalus. Signed: German Guzman MD Report Verified Date/Time:07/24/2017 17:37:18 Reading Location: [address] Neuro Reading Room Procedure Note Interface, External Ris In - 07/25/2017 12:33 PM CDT FINAL REPORT MRI Brain without contrast Clinical History: [...] infarct, hemorrhage, or hydrocephalus. Signed: German Guzman MD Report Verified Date/Time: 07/24/2017 17:37:18 Reading Location: [address] Neuro Reading Room MRA neck without contrast (07/25/2017 12:33 PM) Specimen Performing Laboratory RIS Narrative FINAL REPORT MRA Head CLINICAL HISTORY: Stroke TECHNIQUE: MRA of the head utilizing 3-D lpzj-hz-ymljbj technique, with 3-D reconstructions. COMPARISON: None FINDINGS: There is no evidence of intracranial aneurysm, focal stenosis, or major branch vessel occlusion. There is a origin right posterior cerebral artery. IMPRESSION: No evidence for a major [place] proximal branch vessel occlusion. MRA Neck CLINICAL HISTORY: Stroke TECHNIQUE: MRA of the neck utilizing 2-D and 3-D ppov-kt-ftpqif technique, with 3-D reconstructions. COMPARISON: None FINDINGS: The carotid arteries in the neck are patent including their bifurcations. There is antegrade flow in the vertebral arteries in the neck. IMPRESSION: No evidence of hemodynamically significant stenosis in the cervical carotid or vertebral arteries by NASCET criteria. Signed: German Guzman MD Report Verified Date/Time:07/24/2017 17:43:53 Reading Location: [address] Neuro Reading Room Procedure Note Interface, External Ris In - 07/25/2017 12:33 PM CDT FINAL REPORT MRA Head CLINICAL HISTORY: Stroke TECHNIQUE: MRA of the head utilizing 3-D kdws-rq-ossfha technique, with 3-D reconstructions. COMPARISON: None FINDINGS: There is no evidence of intracranial aneurysm, focal stenosis, or major branch vessel occlusion. There is a origin right posterior cerebral artery. IMPRESSION: No evidence for a major [place] proximal branch vessel occlusion. MRA Neck CLINICAL HISTORY: Stroke TECHNIQUE: MRA of the neck utilizing 2-D and 3-D atrb-rc-kpmick technique, with 3-D reconstructions. COMPARISON: None FINDINGS: The carotid arteries in the neck are patent including their bifurcations. There is antegrade flow in the vertebral arteries in the neck. IMPRESSION: No evidence of hemodynamically significant stenosis in the cervical carotid or vertebral arteries by NASCET criteria. Signed: German Guzman MD Report Verified Date/Time: 07/24/2017 17:43:53 Reading Location: [address] Neuro Reading Room MRA head without contrast (07/25/2017 12:33 PM) Specimen Performing Laboratory RIS Narrative FINAL REPORT MRA Head CLINICAL HISTORY: Stroke TECHNIQUE: MRA of the head utilizing 3-D ohvl-fd-whpynb technique, with 3-D reconstructions. COMPARISON: None FINDINGS: There is no evidence of intracranial aneurysm, focal stenosis, or major branch vessel occlusion. There is a origin right posterior cerebral artery. IMPRESSION: No evidence for a major [place] proximal branch vessel occlusion. MRA Neck CLINICAL HISTORY: Stroke TECHNIQUE: MRA of the neck utilizing 2-D and 3-D najl-an-ekfdmd technique, with 3-D reconstructions. COMPARISON: None FINDINGS: The carotid arteries in the neck are patent including their bifurcations. There is antegrade flow in the vertebral arteries in the neck. IMPRESSION: No evidence of hemodynamically significant stenosis in the cervical carotid or vertebral arteries by NASCET criteria. Signed: German Guzman MD Report Verified Date/Time:07/24/2017 17:43:53 Reading Location: [address] Neuro Reading Room Procedure Note Interface, External Ris In - 08/02/2017 10:50 AM CDT FINAL REPORT MRA Head CLINICAL HISTORY: Stroke TECHNIQUE: MRA of the head utilizing 3-D yqgf-qx-wuaopv technique, with 3-D reconstructions. COMPARISON: None FINDINGS: There is no evidence of intracranial aneurysm, focal stenosis, or major branch vessel occlusion. There is a origin right posterior cerebral artery. IMPRESSION: No evidence for a major [place] proximal branch vessel occlusion. MRA Neck CLINICAL HISTORY: Stroke TECHNIQUE: MRA of the neck utilizing 2-D and 3-D msdr-qt-slacwm technique, with 3-D reconstructions. COMPARISON: None FINDINGS: The carotid arteries in the neck are patent including their bifurcations. There is antegrade flow in the vertebral arteries in the neck. IMPRESSION: No evidence of hemodynamically significant stenosis in the cervical carotid or vertebral arteries by NASCET criteria. Signed: German Guzman MD Report Verified Date/Time: 07/24/2017 17:43:53 Reading Location: [address] Neuro Reading Room SFUSION SERVICE REPORT - SCAN (07/24/2017 5:53 PM)Vitamin B12 and Folate ( 07/24/2017 4:13 AM) Component Value Ref Range Vitamin B12 >2000 (H) 213 - 816 pg/mL Folate 15.0 >=7.0 ng/mL Specimen Performing Laboratory Blood [address] [address] Fasting lipid panel (07/24/2017 4:13 AM) Component Value Ref Range Triglycerides 58 mg/dL Cholesterol 170 mg/dL HDL 51 mg/dL LDL Calculated 107 mg/dL Specimen Performing Laboratory Blood [address] [address] Narrative Triglyceride Reference Range: Low Risk <150 [id number] High Risk 200-499 Very High Risk>=500 Cholesterol Reference Range: Low Risk <200 [id number] High Risk>240 HDL Cholesterol Reference Range: Low Risk >=60 High Risk <40 LDL Cholesterol Reference Range: Optimal<100 Near Xfnetwg625-169 [id number] [id number] Very High >=190 Fasting TSH/Free T4 If Indicated (07/23/2017 6:30 PM) Component Value Ref Range TSH 1.15 0.35 - 4.94 uIU/mL Specimen Performing Laboratory Blood - Arm, Left [address] [address] Type and screen, automated (07/23/2017 5:37 PM) Component Value Ref Range ABO/RH AUTOMATED (BEAKER) O POSITIVE Ab Scrn NEGATIVE Specimen Performing Laboratory Blood [address] [address] Prothrombin time/INR (07/23/2017 5:37 PM) Component Value Ref Range Protime 13.5 11.7 - 14.7 seconds INR 1.0 <=5.9 Specimen Performing Laboratory Blood [address] [address] Narrative RECOMMENDED COUMADIN/WARFARIN INR THERAPY RANGES STANDARD DOSE: 2.0 - 3.0 Includes: PROPHYLAXIS for venous thrombosis, systemic embolization; TREATMENT for venous thrombosis and/or pulmonary embolus. HIGH RISK: Target INR is 2.5-3.5 for patients with mechanical heart valves. Hemoglobin A1c (07/23/2017 5:37 PM) Component Value Ref Range Hemoglobin A1C 5.3 4.3 - 6.1 % Specimen Performing Laboratory Blood [facility] [address] [place] [address] Urinalysis w/Microscopic (07/23/2017 5:18 PM) Component Value Ref Range Color, UA Light Yellow Clarity, UA Clear Specific [place], UA 1.006 1.001 - 1.035 pH, UA 7.0 5.0 - 8.0 Protein, UA Negative Negative Glucose, UA Negative Negative Ketones, UA 40 mg/dL (A) Negative Bilirubin, UA Negative Negative Blood, UA Negative Negative Nitrite, UA Negative Negative Leukocytes, UA Negative Negative Urobilinogen, UA 0.2 0.2 - 1.0 mg/dL RBC, UA 0 /HPF WBC, UA 0 /HPF Mucus Rare Squam Epithel, UA 6 /HPF Specimen Source Urine, Voided Specimen Performing Laboratory Urine - Urine, Voided [facility] [address] [address] after 10/27/2016
[2017-10-28] MEDS ORDERED: CEFAZOLIN/SWI 1gm 1 GM/10 ML SYR ONE (10:01)
[2017-10-28] MEDS ORDERED: Ringers Lactate 1,000 ML IV ONE (10:01)
[2017-10-28] MEDS ORDERED: SCOPOLAMINE HYDROBROMIDE PATCH TD ONE (10:01)
[2017-10-28 10:05] LABS: Specific Gravity 1.025 (1.005-1.030)
[2017-10-28] MEDS ORDERED: MIDAZOLAM HCL 2 MG/2 ML INJ ONE ×3 (12:10→14:37)
[2017-10-28] MEDS ORDERED: PROPOFOL 200 MG/20 ML VIAL IV ONE (12:13)
[2017-10-28] MEDS ORDERED: FENTANYL CITR 100 MCG/2 ML ONE ×2 (12:14→13:41)
[2017-10-28] MEDS ORDERED: ROCURONIUM 50 MG/5 ML VIAL IV ONE ×2 (12:14→13:42)
[2017-10-28] MEDS ORDERED: LIDOCAINE 2% MPF 5 ML VIAL ONE (12:15)
[2017-10-28] MEDS ORDERED: ONDANSETRON HCL 40 MG/20 ML VIAL ONE (12:17)
[2017-10-28] MEDS ORDERED: NA CHLORIDE 0.9% 1,000 ML ONE (12:19)
[2017-10-28] MEDS ORDERED: DEXAMETHASONE 10 MG/ML VIAL ONE (12:52)
[2017-10-28] MEDS ORDERED: GLYCOPYRROLATE 0.2 MG/ML SYR ONE (13:42)
[2017-10-28] MEDS ORDERED: NEOSTIGMINE 1 MG/ML -5 ML SYRINGE ONE (13:44)
[2017-10-28] MEDS ORDERED: KETOROLAC 30 MG/ML INJ ONE (14:00)
[2017-10-28] MEDS ORDERED: Mastisol Adhesive Liq ONE (14:25)
[2017-10-28] MEDS ORDERED: MEPERIDINE HCL 25 MG/0.5 ML ONE (15:02)
[2017-10-28] MEDS ORDERED: HYDROCODONE/APAP 5/325 MG TAB ONE (16:13)
--- NOTE | 2017-10-29 02:54 | OP ---
Date of Procedure: 10/28/2017 Surgeon: Samantha Carney MD Dividing Machine Operator: Bev Villanueva. Preoperative Diagnoses: Heavy irregular menstrual cycles, dysmenorrhea, dyspareunia and pelvic pain. Procedures Performed: Total laparoscopic hysterectomy, bilateral salpingo-oophorectomy, and lysis of sigmoid adhesions and omental adhesions. Anesthesia: General. Estimated Blood Loss: Minimal. Complications: No complications. Drains: No drains. Condition: The patient's condition was stable. Indications: The patient is a 47-year-old, who was my patient, who had increased menstrual periods, severe cramps and dyspareunia. She was worked up with an ultrasound and endometrial biopsy. These w ere all later on negative for endometrial hyperplasia, atypia or malignancy. We offered different op tions to this patient including the endometrial ablation with laparoscopy and a possible endo treatme nt, salpingectomy, medical treatment using an IUD and depot medroxyprogesterone and oral contraceptiv es. After she considered all the options, benefits and risks, she wanted to proceed with an option t hat would completely take care of her bleeding forever, which was a hysterectomy. Discussed the bene fits and risks of the hysterectomy and invasiveness of the procedure; however, given the significant amount of pain and the pain she is experiencing, this is not an unreasonable option. After she under stood the risks of the procedure, she was given time to reconsider, come back and questions were answ ered. She originally consented for a laparoscopic hysterectomy, bilateral salpingectomy, possible oo phorectomy, and she decided that she definitely want to have an oophorectomy, did not want to have to come back and deal with this. So, we talked about hormone therapy postop and we consented her for T LH/BSO in the preop area after she was sure. Description Of Procedure: After 1 g of Ancef was given, she was taken back to the OR, placed in supi ne fashion on the operating table. After general anesthesia was given, she was placed in a dorsal li thotomy position using Michael stirrups. Pelvic exam was performed. Uterus was anteflexed, about 8 we eks size, mobile, no adnexal masses. No scar tissue palpated. Abdomen, vulva, vagina, and perineum were prepped and draped in a sterile fashion. Pressley was placed to drain the bladder and attached to cysto tubing, to an LR bag, emptied 300. Then a large VCare was introduced into the uterus and fixed in place and this area was draped. A 1-cm infraumbilical incision was made at the old scar site and fascia was exposed after dissecting through the scar and excising the old scar. Then, fascia was incised with a 15 blade and the edges t agged with a 0 Vicryl suture. Peritoneum was entered bluntly. S retractor was placed and camera int roduced into the peritoneal cavity and survey performed. Liver, gallbladder and appendix all appeare d to be unremarkable. Peritoneal surface was unremarkable, omentum stuck on top of the uterus and th e left tube. The patient was placed in T-debbie, 5 mm left lower quadrant suprapubic ports were placed under direct vision, then looked inside and surveyed the entire pelvic cavity. There were dense adhesions of the omentum. There were Filshie clips that were placed on the left tube. Partially, the omentum had to be taken down leaving a specimen of the omentum. This was taken down with the help of LigaSure and t hen there was good hemostasis of the omentum. There were adhesions of the sigmoid colon to the left adnexa at the origin of the IP and the lateral wall, so these were taken down sharply with scissors w ith push spread dissection and occasionally with using the bipolar cautery with the fine tip LigaSure . Once all the adhesions were taken down systematically until about 15 minutes of the case, I then p roceeded with the surgery. Both ovaries were visualized, both tubes were visualized and unremarkable . Both tubes had Filshie clips. Both ureters were visualized on each side and there was excellent e xposure and no evidence of any distortion of anatomy. A 5 mm LigaSure was used to take down the proximal part of the left tube. Then, the utero-ovarian li gament, round ligament, anterior broad ligament were opened up to raise the bladder flap all the way to the opposite side and posteriorly peritoneum taken down to the left uterosacral and the broad liga ment taken down with the LigaSure to skeletonize the vessels. On the opposite side, a similar dissection was done to take down the mesosalpinx, the proximal part o f the tube, distal stump was left, but the tube was dissected laterally to slop over to the side of t he ovary. Then, the round ligament taken down, the anterior broad ligament connected to finish the b ladder flap and posteriorly take it down to the uterosacral and then skeletonized the broad ligament to expose the vessels. Then, peritoneum with the precervical fascia was dissected. Vesicovaginal sp latanya was entered with the help of monopolar hook blade, taking down this tissue. There was areolar ti ssue. Then the bladder was dissected inferiorly without any problems. Then, we went down to take do wn the vessels after making a medial opening with a monopolar on the cuff medial to the vessels on th e right. Then, the LigaSure were used to take down the vessels individually and then the cardinal li gaments were also taken down. On the opposite side, a similar dissection was done to take down the vessels, cardinal ligament. The n, the cuff was exposed and circumferential colpotomy was performed with a monopolar hook blade witho ut any problems and the specimen detached and removed through the vagina. After thorough irrigation and suction were performed, the tube and ovary were removed on the left taz e and then on the right side with the help of the LigaSure, dissection was relatively easy and unrema rkable. The specimens were all retrieved through the vagina including the omental specimen with tube attached and a Filshie clip from the left side. After thorough irrigation and suction were performed, there was excellent hemostasis on the vaginal c uff. This was closed with the help of 0 V-Loc PDS in a continuous running fashion starting at the le ft angle. The long stitch was cut down and the knot was placed here and the suturing was started fro m below the right end of the vaginal cuff continuously in a running fashion taken down all the way to the lateral aspect of the vaginal cuff on the left and then medially another stitch was taken to bur y the tail and went on to close the peritoneum with the help of a 3-0 Vicryl in a continuous running fashion. This was tied on top to retro-peritonealize the V-Loc. Thorough irrigation and suction were performed. All pedicles were completely hemostatic. Ureters wallis d no evidence of electrical, mechanical, or thermal injury to them and all the trocars were removed u nder direct vision. Fascia closed with the help of 0 Vicryl in a pfofzq-ms-vsgye fashion and subcuta neous tissue was brought together with the simple 0 Vicryl stitch, simple 0 Vicryl stitch on the fasc ia at the suprapubic area as well and 4-0 Monocryl for all the skin closure. A Pressley, VCare bulb wer e all removed. Instrument, needle, and sponge count and device count were all correct. At the end o f the case, the patient tolerated the procedure well. She was extubated in the OR and taken to PACU in stable condition. EBL was minimal. SK/MODL Voice ID: [id number] Report ID: [id number]
== END 2017-10-28 18:46 | disposition home or self-care (01) ==
LOC: OR 09:44
PROVIDERS: ATTEND Obstetrics & Gynecology
PROC: 0UT24ZZ Resection of Bilateral Ovaries, Percutaneous Endoscopic Approach (ICD-10-PCS; 2017-10-28)
PROC: 0UT74ZZ Resection of Bilateral Fallopian Tubes, Percutaneous Endoscopic Approach (ICD-10-PCS; 2017-10-28)
PROC: 0DNU4ZZ Release Omentum, Percutaneous Endoscopic Approach (ICD-10-PCS; 2017-10-28)
PROC: 0UT94ZZ Resection of Uterus, Percutaneous Endoscopic Approach (ICD-10-PCS; principal; 2017-10-28 11:00)
DX: N92.1 Excessive and frequent menstruation with irregular cycle (principal); N94.6 Dysmenorrhea, unspecified; N94.10 Unspecified dyspareunia; K66.0 Peritoneal adhesions (postprocedural) (postinfection); N70.11 Chronic salpingitis; N83.8 Other noninflammatory disorders of ovary, fallopian tube and broad ligament; Z79.82 Long term (current) use of aspirin; Z86.73 Personal history of transient ischemic attack (TIA), and cerebral infarction without residual deficits; Z80.3 Family history of malignant neoplasm of breast
CPT/HCPCS: 36415; 80048; 81003; 81025; 85025; 85610; 85730; 86850; 86900; 86901; 88305; 88307; J0690; J1100; J2175; J2250; J2405; J2710; J3010; J7030